=== PATIENT | female | born 1970 | race Caucasian/White ===

== ENCOUNTER → 2021-07-31 | Outpatient (CLI) | payer OTHER | LOC: RAD 14:40 | DX: M48.02 Spinal stenosis, cervical region (principal); G95.89 Other specified diseases of spinal cord; Z98.1 Arthrodesis status | CPT/HCPCS: A9585 ==

== ENCOUNTER → 2022-12-25 | Outpatient (CLI) | payer OTHER | LOC: RAD 11:37 | DX: Z01.811 Encounter for preprocedural respiratory examination (principal) ==